=== PATIENT | female | born 1975 | race Caucasian/White ===

== ENCOUNTER 2022-06-06 00:44 | Inpatient (IN) | payer BC, SELFPAY ==
[2022-06-06] VITALS (10 sets, daily range): BP systolic 111–148; BP diastolic 66–90; PULSE 90–135; RESP 14–22; TEMP 37–39.3; O2SAT 93–100; BMI 35.0
--- NOTE | ~2022-06-06 | US_ITS ---
EXAMINATION: US PELVIS CLINICAL INFORMATION: Normal ovaries on CT COMPARISON: CT of abdomen pelvis 06/06/2022 TECHNIQUE: Ultrasound of the pelvis is performed using both transabdominal and transvaginal transducers along with Doppler. Transvaginal imaging is performed due to inadequate visualization transabdominally. FINDINGS: Uterus: The uterus is retroverted and measures 8.5 x 3.2 x 4.8 cm. The double wall endometrial thickness is 0.5 mm. Question of a possible 0.9 x 0.5 x 0.5 cm echogenic focus within the anterior aspect of the endometrium, unclear if this could reflect an underlying polyp. This could be further evaluated with dedicated saline sonohysterogram if warranted. The uterus is smooth in contour and has normal myometrial echogenicity. No visible fibroid. Adnexa: Both ovaries are visualized. There is normal color flow to the adnexa. There is no ovarian torsion. There is no pelvic ascites or fluid collection. Right ovary measures 5.5 x 4.5 x 3.2 cm cm. There is a unilocular 3.5 x 4.7 x 2.8 cm cyst with low-level internal echoes. Dilated tubular structure in the right adnexa may reflect a hydrosalpinx. Left ovary measures 6.4 x 4.6 x 3.8 cm. 2 adjacent cystic lesions are noted within the left ovary one measuring 3.4 x 3.7 x 3.3 cm with low-level internal echoes and one measuring 4.0 x 2.1 x 2.9 cm with some low level internal echoes with possible lacelike reticulation. Per all source collection manager report ovaries were adherent to the uterus which can be a sign of fibrosis. US/US pelvic ovarian doppler IMPRESSION: 1. Right ovarian cystic lesion with low-level internal echoes measuring 4.7 cm morphologically resembling an endometrioma. On the left there are 2 adjacent cystic lesions one with low-level internal echoes measuring 3.7 cm morphologically resembling an endometrioma and an adjacent 4.0 cm cystic lesion with low-level internal echoes and questionable lacelike reticulations which differential considerations could include hemorrhagic cyst or endometrioma. Recommend 6-12 week follow-up ultrasound. 2. Question of a possible 0.9 cm echogenic focus within the anterior aspect of the endometrium, unclear if this could reflect an underlying polyp. This could be further evaluated with dedicated saline sonohysterogram if warranted. 3. Dilated tubular structure in the right adnexa may reflect a hydrosalpinx. 4. Per all source collection manager report ovaries were adherent to the uterus which can be a sign of fibrosis.
--- NOTE | ~2022-06-06 | CT_ITS ---
EXAMINATION: CT ABDOMEN AND PELVIS WITHOUT CONTRAST CLINICAL INFORMATION: Right-sided abdominal pain, leukocytosis, fever. COMPARISON: CT abdomen/pelvis 06/28/2021. TECHNIQUE: Multidetector volumetric imaging was performed from the superior aspect of the liver through the pubic symphysis. Sagittal and coronal reformatted images were obtained on the technologist's workstation. This CT examination was performed using dose optimization techniques as appropriate, variously including the following: *Automated exposure control *Adjustment of mA and/or kV according to patient size (this includes techniques or standardized protocols for targeted exams where dose is matched to indication/reason for exam; i.e. extremities or head) *Use of iterative reconstruction technique DLP: 866 mGy-cm FINDINGS: LUNG BASES: The visualized lung bases are unremarkable. LIVER, GALLBLADDER, AND BILIARY TREE: Hepatomegaly measuring 24.4 cm craniocaudally. The liver is otherwise normal in shape and attenuation without discrete focal abnormality in this limited noncontrast examination. Normal appearance of the gallbladder. No biliary ductal dilatation. PANCREAS: Unremarkable. SPLEEN: Unremarkable. ADRENAL GLANDS: Unremarkable. KIDNEYS AND URETERS: The kidneys are normal in size, shape, and attenuation. No hydronephrosis, hydroureter, or calculi seen. No perinephric stranding. BLADDER: Unremarkable. GASTROINTESTINAL TRACT: The stomach is nondilated. There is equivocal wall thickening within a loop of the small bowel in the left upper abdomen (3:44). There are several fluid filled mildly prominent loops of small bowel throughout the abdomen. The appendix is not definitely identified, however there are no inflammatory changes in the right lower quadrant or cecal base to suspect acute appendicitis. Mild colonic diverticulosis. No pericolic inflammatory changes. ABDOMINAL WALL: Multiple surgical tacks/clips in the inguinal regions and lower abdominal wall, likely from prior hernia repair. No evidence of hernia recurrence. LYMPH NODES: Mild haziness of the mesenteric fat with a few prominent subcentimeter in short axis mesenteric lymph nodes. Prominent iliac lymph nodes, for instance measuring 0.8 cm in short axis on the left side (3:71) are increased in size in comparison to 06/28/2021. VASCULAR: Limited noncontrast examination. The abdominal aorta is of normal caliber. PELVIC VISCERA: The ovaries are abnormally enlarged, increased when compared to 06/28/2021, demonstrating multiple low density masses. The ovaries are somewhat medially positioned, suggesting the possibility of adhesions and fibrosis. Trace amount of free fluid. OSSEOUS STRUCTURES: No acute or aggressive appearing osseous abnormalities. CT/CT abdomen pelvis wo IV con IMPRESSION: The ovaries are abnormally in appearance, enlarged with multiple low density masses and somewhat medially positioned, suggesting the possibility of endometriosis and deep pelvic endometriosis. Recommend further evaluation with a pelvic MRI with and without intravenous contrast. Equivocal wall thickening of a loop of small bowel in the left upper abdomen with several fluid filled prominent loop of small bowel throughout the abdomen which could be related with gastroenteritis in the appropriate clinical context. Mild diverticulosis but no evidence of acute diverticulitis. Increased size of iliac lymph nodes when compared to 06/28/2021, nonspecific. Hepatomegaly.
--- NOTE | ~2022-06-06 | CT_ITS ---
EXAMINATION: CT ABDOMEN AND PELVIS WITH CONTRAST CLINICAL INFORMATION: Abdominal pain with complex ovarian cyst COMPARISON: Noncontrast CT scan of the abdomen and pelvis performed today, only 8 hours ago TECHNIQUE: Multidetector volumetric images were obtained from the superior aspect of the liver through the pubic symphysis following administration 85 mL of Omnipaque 350 intravenous contrast. Sagittal and coronal reformatted images were obtained on the technologist's workstation. Oral contrast: No This CT examination was performed using dose optimization techniques as appropriate, variously including the following: *Automated exposure control *Adjustment of mA and/or kV according to patient size (this includes techniques or standardized protocols for targeted exams where dose is matched to indication/reason for exam; i.e. extremities or head) *Use of iterative reconstruction technique DLP: 867 mGy-cm FINDINGS: Compared to the prior study from 8 hours ago there is been no interval change LUNG BASES: The visualized lung bases are unremarkable. LIVER, GALLBLADDER, AND BILIARY TREE: Hepatomegaly again noted and unchanged with the liver measuring 24 cm in cephalocaudad dimension.. The liver is otherwise normal in shape and attenuation without discrete focal abnormality in this limited noncontrast examination. Normal appearance of the gallbladder with the exception of an equivocal punctate area of low density in the gallbladder which could represent noncalcified gallstones (2:29). If gallbladder disease is a consideration, ultrasound is recommended. No biliary ductal dilatation. PANCREAS: Unremarkable. SPLEEN: Unremarkable. ADRENAL GLANDS: Unremarkable. KIDNEYS AND URETERS: The kidneys are normal in size, shape, and attenuation. No hydronephrosis, hydroureter, or calculi seen. No perinephric stranding. BLADDER: Unremarkable. GASTROINTESTINAL TRACT: The stomach is nondilated. There is a slight increase in diameter of some fluid-filled small bowel loops of bowel in the left upper quadrant but no evidence of bowel obstruction. The appendix is not definitely identified, however there are no inflammatory changes in the right lower quadrant or cecal base to suspect acute appendicitis. Mild colonic diverticulosis. No pericolic inflammatory changes. ABDOMINAL WALL: Multiple surgical tacks/clips again seen in the inguinal regions and lower abdominal wall from prior hernia repair. No evidence of hernia recurrence. LYMPH NODES: Some shotty para-aortic retroperitoneal lymph nodes without adenopathy.) For example 2:27) Again seen are some minimally prominent iliac lymph nodes as seen on exam earlier today. VASCULAR: Unremarkable PELVIC VISCERA: Again seen are enlarged ovaries, increased when compared to 06/28/2021, demonstrating multiple low density masses. There are medially placed and appear to almost be contiguous with one another. OSSEOUS STRUCTURES: No acute or aggressive appearing osseous abnormalities. CT/CT abdomen pelvis w IV con IMPRESSION: Again seen are enlarged medially deviated ovaries with multiple low density masses . Differential diagnosis continues to include the possibility of endometriosis and a pelvic MRI with and without intravenous contrast would be useful for further evaluation. Minimally prominent fluid-filled loops of small bowel left upper quadrant of questionable significance. No definite bowel obstruction. Mild diverticulosis but no evidence of acute diverticulitis. Other incidental findings described above including some nonspecific retroperitoneal and iliac lymph nodes as well as marked hepatomegaly and question of gallstones.
--- NOTE | ~2022-06-06 | MR_ITS ---
EXAMINATION: MRI PELVIS WITH AND WITHOUT CONTRAST CLINICAL INFORMATION: Reason for Exam ?ovarian adhesions ?endometriosis COMPARISON: Pelvic ultrasound 06/06/2022 TECHNIQUE: Multiple routine MRI sequences through the pelvis were obtained before and after the uneventful administration of 10 mL of Gadavist gadolinium-based IV contrast. FINDINGS: UTERUS: Retroverted uterus has a normal configuration and measures 7.9 x 4.5 x 4.0 cm ([id number] x anterior-posterior x transverse). Endometrium is uniform and measures 0.4 cm in thickness. Junctional zone is normal in signal and thickness. No focal uterine mass seen. CERVIX: Nabothian cyst in the cervix. VAGINA: Unremarkable. OVARIES: The right ovary measures 5.0 x 4.3 cm. The right ovary is remarkable for a 3.5 x 3.0 cm cystic lesion with layering T2 hypointense signal suggesting T2 hypointense shading sign. No intrinsic T1 hyperintense signal. Mild right hydrosalpinx. No enhancing solid components. The left ovary measures 6.1 x 4.7 cm. Left ovary is remarkable for 2 cystic lesions one more anteriorly which is multiloculated measuring 4.2 x 3.1 cm with layering T2 signal compatible with a T2 shading sign. More posteriorly is an additional cystic lesion measuring 4.2 x 3.2 cm heterogeneous T2 signal. Mild left hydrosalpinx. No enhancing solid components. No intrinsic T1 hyperintense signal. KIDNEYS: Two normally positioned kidneys are seen. No hydronephrosis. BLADDER: Unremarkable. PELVIC FREE FLUID: Presacral edema and trace free fluid. LYMPH NODES: No pathologically enlarged lymph nodes. OSSEOUS STRUCTURES: No acute or suspicious osseous abnormalities. MR/MR pelvis wo/w con IMPRESSION: There are bilateral cystic ovarian lesions. A 3.5 cm unilocular cystic right ovarian lesion and a 4.2 cm multiloculated cystic left adnexal lesion both demonstrate layering T2 hypointense signal suggesting shading sign which could be seen in the setting of endometriomas although the absence of any intrinsic T1 hyperintense signal is atypical. There is an additional 4.2 cm cystic left ovarian lesion with heterogeneous T2 signal, favored to reflect a hemorrhagic cyst however as with the above described cystic lesions there is an absence of intrinsic T1 hyperintense signal which is also atypical. Given atypical features, mucinous cystadenoma would be the other differential consideration. Categorically, these both reflect O-RADS 3 lesions by MR, approximately 5% chance of malignancy. Recommend gynecologic referral and management and short interval follow-up contrast enhanced MR pelvis in 3-6 months.
--- NOTE | ~2022-06-06 | US_ITS ---
EXAMINATION: US PELVIS CLINICAL INFORMATION: Normal ovaries on CT COMPARISON: CT of abdomen pelvis 06/06/2022 TECHNIQUE: Ultrasound of the pelvis is performed using both transabdominal and transvaginal transducers along with Doppler. Transvaginal imaging is performed due to inadequate visualization transabdominally. FINDINGS: Uterus: The uterus is retroverted and measures 8.5 x 3.2 x 4.8 cm. The double wall endometrial thickness is 0.5 mm. Question of a possible 0.9 x 0.5 x 0.5 cm echogenic focus within the anterior aspect of the endometrium, unclear if this could reflect an underlying polyp. This could be further evaluated with dedicated saline sonohysterogram if warranted. The uterus is smooth in contour and has normal myometrial echogenicity. No visible fibroid. Adnexa: Both ovaries are visualized. There is normal color flow to the adnexa. There is no ovarian torsion. There is no pelvic ascites or fluid collection. Right ovary measures 5.5 x 4.5 x 3.2 cm cm. There is a unilocular 3.5 x 4.7 x 2.8 cm cyst with low-level internal echoes. Dilated tubular structure in the right adnexa may reflect a hydrosalpinx. Left ovary measures 6.4 x 4.6 x 3.8 cm. 2 adjacent cystic lesions are noted within the left ovary one measuring 3.4 x 3.7 x 3.3 cm with low-level internal echoes and one measuring 4.0 x 2.1 x 2.9 cm with some low level internal echoes with possible lacelike reticulation. Per machinist wood report ovaries were adherent to the uterus which can be a sign of fibrosis. US/US pelvic and transvaginal IMPRESSION: 1. Right ovarian cystic lesion with low-level internal echoes measuring 4.7 cm morphologically resembling an endometrioma. On the left there are 2 adjacent cystic lesions one with low-level internal echoes measuring 3.7 cm morphologically resembling an endometrioma and an adjacent 4.0 cm cystic lesion with low-level internal echoes and questionable lacelike reticulations which differential considerations could include hemorrhagic cyst or endometrioma. Recommend 6-12 week follow-up ultrasound. 2. Question of a possible 0.9 cm echogenic focus within the anterior aspect of the endometrium, unclear if this could reflect an underlying polyp. This could be further evaluated with dedicated saline sonohysterogram if warranted. 3. Dilated tubular structure in the right adnexa may reflect a hydrosalpinx. 4. Per machinist wood report ovaries were adherent to the uterus which can be a sign of fibrosis.
[2022-06-06 01:12] LABS: MANUAL DIFF FLAG NO
[2022-06-06 01:13] LABS: Basophils Absolute Auto 0.1 X10*3/uL (0.0-0.2); Basophils Percent Auto 0.3 % (0-2); Hematocrit 39.1 % (37.0-47.0); Hemoglobin 13.8 g/dl (12.0-16.0); Imm Gran Abs Auto 0.09 X10*3/uL (0.00-0.03); Imm Gran Pct Auto 0.5 % (0.0-0.4); Lymphocytes Absolute Auto 1.3 X10*3/uL (1.2-4.9); Lymphocytes Percent Auto 6.7 % (20-40); Mean Corpuscular HGB Conc 35.3 g/dl (31.0-35.0); Mean Corpuscular Hemoglobin 30.8 pg (27.0-33.0); Mean Corpuscular Volume 87.3 fL (80.0-98.0); Mean Platelet Volume 9.3 fL (9.4-12.3); Monocytes Absolute Auto 1.4 X10*3/uL (0.1-1.2); Neutrophils Percent Auto 85.5 % (45-73); Platelet Count 353 X10*3/uL (160-400); Red Blood Count 4.48 X10*6/uL (4.20-5.50); Red Cell Distribution Width 11.5 % (11.0-16.0); White Blood Count 19.8 X10*3/uL (4.8-10.8)
[2022-06-06 01:24] LABS: Lactic Acid 1.2 mmol/L (0.5-2.0)
[2022-06-06] MEDS: ondansetron HCL 4 MG/2 ML VIAL IVPUSH ×4 (01:24→23:14)
[2022-06-06] MEDS: 0.9 % Sodium Chloride 1,000 ML 999 ML IV (01:27)
[2022-06-06 01:31] LABS: Lipase 11 U/L (8-78)
[2022-06-06 01:33] LABS: Alanine Aminotransferase 29 U/L (0-31); Albumin Level 4.1 g/dL (3.5-5.0); Alkaline Phosphatase 104 U/L (39-117); Anion Gap 16 (12-20); Aspartate Amino Transferase 31 U/L (5-31); Bilirubin Direct 0.4 mg/dL (0.0-0.5); Bilirubin Total 1.1 mg/dL (0.0-1.0); Blood Urea Nitrogen 8 mg/dL (9-16); Carbon Dioxide 20 mmol/L (22-29); Chloride 103 mmol/L (96-108); Creatinine Clr Calc Pharmacy 106.2; Estimated Glomerular Filt Rate > 60; Glucose Random 156 mg/dL (60-115); Potassium 4.2 mmol/L (3.3-5.1); Sodium 135 mmol/L (135-145); Total Protein 7.4 g/dL (6.5-8.0)
[2022-06-06] MEDS: Piperacillin Sodium/Tazobactam 3.375 GM in 0.9 % Sodium Chloride 50 ML IV (01:41)
[2022-06-06] MEDS: 0.9 % Sodium Chloride 1,779 ML 1779 ML IV (01:41)
[2022-06-06] MEDS: Acetaminophen 325 MG TABLET 650 MG PO ×2 (01:41→23:15)
--- NOTE | 2022-06-06 01:50 | ED_ITS ---
HPI - Abdominal Pain General Chief Complaint: Abdominal Pain Stated Complaint: abd pain Time Seen by Provider: 06/06/22 01:17 Source: patient and family (Spouse) Mode of arrival: ambulatory Limitations: no limitations History of Present Illness HPI narrative: 46-year-old female presented with right-sided abdominal pain started 3 days ago, patient started to have fever and chills. Abdominal pain is intermittent l ocalized to the right side of the abdomen, no dysuria, no frequency urination, no blood in the urine, normal bowel movement with no diarrhea or blood. 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 Related Data Allergies Allergy/AdvReac Type Severity Reaction Status Date / Time No Known Allergies Allergy Verified 06/06/22 00:54 Review of Systems Review of Systems All other systems are reviewed and are negative Constitutional: Reports as per HPI and Reports no additional constitutional complaints Eyes: Reports as per HPI and Reports no additional eye complaints Reports system reviewed and no additional complaints, except as documented Cardiovascular: Reports as per HPI and Reports no additional cardiovascular complaints Respiratory: Reports as per HPI and Reports no additional respiratory complaints Gastrointestinal: Reports as per HPI and Reports no additional gastrointestinal complaints Genitourinary: Reports no additional female genitourinary complaints Musculoskeletal: Reports no additional musculoskeletal complaints Skin/Breast: Reports system reviewed and no additional complaints, except as docu Psychiatric: Reports no additional psychiatric complaints Endocrine: Reports no additional endocrine complaints Hematologic/Lymphatic: Reports no additional hematologic/lymphatic complaints Allergic/Immunologic: Reports no additional allergic/immunologic complaints Reports system reviewed and no additional complaints, except as documented and Reports Abnormal speech present [facility] Past Medical History Medical History (Updated 06/06/22 @ 06:01 by James Oliver MD) Endometriosis Surgical History (Updated 06/06/22 @ 05:15 by Prabha Drew MD) H/O hernia repair Social History Social History Advance Directives: No Physical Exam ED Vital Signs: Vital Signs - 24 hr 06/06/22 00:47 06/06/22 02:32 06/06/22 03:32 Temperature 102.7 F H 99.6 F 98.8 F Pulse Rate 135 H 96 94 Respiratory Rate 22 H 16 14 Blood Pressure 148/90 H 120/70 117/69 Pulse Oximetry 99 97 97 Oxygen Delivery Method Room Air Room Air Room Air 06/06/22 04:00 06/06/22 04:29 Temperature 98.6 F 98.6 F Pulse Rate 90 103 H Respiratory Rate 18 16 Blood Pressure 119/67 111/71 Pulse Oximetry 96 97 Oxygen Delivery Method Room Air Room Air BMI result Body Mass Index 35.0 Vital signs have been reviewed as appeared to be correct. Blood pressure normal. Tachycardia. Respiration rate normal. Febrile. Oxygen saturation normal. Appearance: Alert. Oriented X3. No acute distress. Head: Normal external exam. Normocephalic. Atraumatic. No Dang signs noted. No raccoon eyes noted Eyes: PERRLA. EOMI. Conjunctiva and sclera normal. Eyelids normal. ENT: TM's Normal. Pharynx normal. Uvula midline. Moist mucous membranes. No trismus noted. No drooling noted. No muffled voice noted. Neck: Normal inspection. Neck supple. FROM. No adenopathy. Thyroid Normal. No meningeal signs. No neck mass noted. CVS: Normal heart rate and rhythm. Heart sound normal. No murmurs noted. Pulses normal throughout. Respiratory: No respiratory distress. Painless inspiration. Breath sounds normal. No wheezes/rales/rhonchi noted. Chest nontender. No accessory muscle usage noted or decreased air movement noted. Abdomen: Soft and obese, mild tenderness in the right mid abdomen, no guarding, no rebound. Bowel sounds normal in all 4 quadrants. No distention noted. No organomegaly noted. No visible injury noted. Back: Mild right CVA tenderness. Full range of motion noted. Skin: Skin warm and dry. Normal skin color. Normal skin turgor. No rashes/lesions/lacerations noted. Extremities: No lower extremity edema. Extremities exhibit normal range of motion. Extremities nontender. Neuro: Oriented X 3. Cranial nerve exam: II-XII are grossly intact No motor deficit. No sensory deficit. Reflexes normal. Course Course Course Narrative: 46-year-old female came in for evaluation of right-sided abdominal pain with f ever and tachycardia with leukocytosis, patient has mild UTI which is not believed to be the reason of this high fever and leukocytosis, however there is abnormal looking ovaries on CT of the abdomen and pelvis which will [facility] consultation in the a.m.. Patient already received Zosyn and Rocephin for broad coverage antibiotic and received 30 cc/kg IV fluid (1779 mL). Will admit the patient discussed with Dr. Drew who accepted the patient to the hospitalist service. Medications Administered Generic Name Dose Route Start Last Admin Trade Name Freq PRN Reason Stop Dose Admin Enoxaparin Sodium 40 mg 06/06/22 05:15 06/06/22 05:44 Enoxaparin Sodium 40 Mg/0.4 Ml Syringe SUBCUT 40 mg Q24H MELINDA Administration Morphine Sulfate 2 mg 06/06/22 05:04 06/06/22 05:50 Morphine Sulfate 4 Mg/Ml Cartridge IVPUSH 2 mg Q4H PRN Administration Pain, Severe (Pain Scale 7-10) Protocol Discontinued Medications Generic Name Dose Route Start Last Admin Trade Name Freq PRN Reason Stop Dose Admin Acetaminophen 650 mg 06/06/22 01:34 06/06/22 01:41 Acetaminophen 325 Mg Tablet PO 06/06/22 01:35 650 mg ONCE ONE Administration Sodium Chloride 1,000 mls @ 999 mls/hr 06/06/22 01:30 06/06/22 01:40 Ns IV 06/06/22 02:30 0 mls/hr .Q1H1M MELINDA Infusion Sodium Chloride 1,779 mls @ 1,779 mls/hr 06/06/22 01:34 06/06/22 03:34 Ns IV 06/06/22 02:33 Infused .Q1H STA Infusion Piperacillin Sod/Tazobactam 50 mls @ 100 mls/hr 06/06/22 01:34 06/06/22 02:11 Sod 3.375 gm/ Sodium Chloride IV 06/06/22 02:03 Infused ONCE ONE Infusion Ceftriaxone Sodium 1 gm/ 50 mls @ 100 mls/hr 06/06/22 03:58 06/06/22 04:39 Sodium Chloride IV 06/06/22 04:27 Infused ONCE ONE Infusion Piperacillin Sod/Tazobactam 100 mls @ 200 mls/hr 06/06/22 05:15 06/06/22 05:30 Sod 4.5 gm/ Sodium Chloride IV Not Given Q6H MELINDA Ondansetron HCl 4 mg 06/06/22 01:20 06/06/22 01:24 Ondansetron Hcl 4 Mg/2 Ml Vial IVPUSH 06/06/22 01:21 4 mg ONCE ONE Administration MDM - Abdominal Pain Medical Records Attestation: I reviewed the patient's medical records. Lab Data Attestation: I reviewed the patient's lab results. Result diagrams: 06/06/22 01:04 06/06/22 01:04 Labs: Lab Results 06/06/22 06/06/22 06/06/22 Range/Units 01:04 01:04 01:04 WBC 19.8 H (4.8-10.8) X10*3/uL RBC 4.48 (4.20-5.50) X10*6/uL Hgb 13.8 (12.0-16.0) g/dl Hct 39.1 (37.0-47.0) % MCV 87.3 (80.0-98.0) fL MCH 30.8 (27.0-33.0) pg MCHC 35.3 H (31.0-35.0) g/dl RDW 11.5 (11.0-16.0) % Plt Count 353 (160-400) X10*3/uL MPV 9.3 L (9.4-12.3) fL Immature Gran % (Auto) 0.5 H (0.0-0.4) % Neut % (Auto) 85.5 H (45-73) % Lymph % (Auto) 6.7 L (20-40) % [place] % (Auto) 7.0 (2-11) % Eos % (Auto) 0.0 (0-4) % Baso % (Auto) 0.3 (0-2) % Lymph # (Auto) 1.3 (1.2-4.9) X10*3/uL [place] # (Auto) 1.4 H (0.1-1.2) X10*3/uL Eos # (Auto) 0.0 (0.0-0.4) X10*3/uL Baso # (Auto) 0.1 (0.0-0.2) X10*3/uL Abs Immat Gran (auto) 0.09 H (0.00-0.03) X10*3/uL Absolute Neuts (auto) 17.0 H (2.0-8.3) x10*3/uL Absolute Nucleated RBC 0.000 (0.0-0.012) X10*3/uL Nucleated RBC % (auto) 0.0 (0.0-0.2) /100WBC Sodium 135 (135-145) mmol/L Potassium 4.2 (3.3-5.1) mmol/L Chloride 103 (96-108) mmol/L Carbon Dioxide 20 L (22-29) mmol/L Anion Gap 16 (12-20) BUN 8 L (9-16) mg/dL Creatinine 0.80 (0.5-1.4) mg/dL Estim Creat Clear Calc 106.2 Estimated GFR > 60 Random Glucose 156 H (60-115) mg/dL Lactic Acid 1.2 (0.5-2.0) mmol/L Calcium 10.0 (8.4-10.2) mg/dL Total Bilirubin 1.1 H (0.0-1.0) mg/dL Direct Bilirubin 0.4 (0.0-0.5) mg/dL AST 31 (5-31) U/L ALT 29 (0-31) U/L Alkaline Phosphatase 104 (39-117) U/L Total Protein 7.4 (6.5-8.0) g/dL Albumin 4.1 (3.5-5.0) g/dL Lipase 11 (8-78) U/L Urine Color Urine Appearance Urine pH (5.0-9.0) Ur Specific [place] (1.005-1.025) Urine Protein (Neg-Trace) mg/dL Urine Glucose (UA) (Negative) mg/dL Urine Ketones (Negative) mg/dL Urine Blood (Negative) Urine Nitrite (Negative) Ur Leukocyte Esterase (Negative) Urine RBC (0-2) /HPF Urine WBC (0-5) /HPF Ur Squamous Epith Cells (0-2) /HPF Urine Bacteria (None Seen) Hyaline Casts (0-2) /LPF Influenza Type A (PCR) (Negative) Influenza Type B (PCR) (Negative) RSV RNA Qual (PCR) (Negative) SARS-CoV-2 RNA (RT-PCR) (Negative) 06/06/22 06/06/22 Range/Units 01:46 02:57 WBC (4.8-10.8) X10*3/uL RBC (4.20-5.50) X10*6/uL Hgb (12.0-16.0) g/dl Hct (37.0-47.0) % MCV (80.0-98.0) fL MCH (27.0-33.0) pg MCHC (31.0-35.0) g/dl RDW (11.0-16.0) % Plt Count (160-400) X10*3/uL MPV (9.4-12.3) fL Immature Gran % (Auto) (0.0-0.4) % Neut % (Auto) (45-73) % Lymph % (Auto) (20-40) % [place] % (Auto) (2-11) % Eos % (Auto) (0-4) % Baso % (Auto) (0-2) % Lymph # (Auto) (1.2-4.9) X10*3/uL [place] # (Auto) (0.1-1.2) X10*3/uL Eos # (Auto) (0.0-0.4) X10*3/uL Baso # (Auto) (0.0-0.2) X10*3/uL Abs Immat Gran (auto) (0.00-0.03) X10*3/uL Absolute Neuts (auto) (2.0-8.3) x10*3/uL Absolute Nucleated RBC (0.0-0.012) X10*3/uL Nucleated RBC % (auto) (0.0-0.2) /100WBC Sodium (135-145) mmol/L Potassium (3.3-5.1) mmol/L Chloride (96-108) mmol/L Carbon Dioxide (22-29) mmol/L Anion Gap (12-20) BUN (9-16) mg/dL Creatinine (0.5-1.4) mg/dL Estim Creat Clear Calc Estimated GFR Random Glucose (60-115) mg/dL Lactic Acid (0.5-2.0) mmol/L Calcium (8.4-10.2) mg/dL Total Bilirubin (0.0-1.0) mg/dL Direct Bilirubin (0.0-0.5) mg/dL AST (5-31) U/L ALT (0-31) U/L Alkaline Phosphatase (39-117) U/L Total Protein (6.5-8.0) g/dL Albumin (3.5-5.0) g/dL Lipase (8-78) U/L Urine Color Yellow Urine Appearance Clear Urine pH 8.5 (5.0-9.0) Ur Specific [place] 1.015 (1.005-1.025) Urine Protein Trace (Neg-Trace) mg/dL Urine Glucose (UA) Negative (Negative) mg/dL Urine Ketones Trace (Negative) mg/dL Urine Blood Negative (Negative) Urine Nitrite Negative (Negative) Ur Leukocyte Esterase Small (1+) H (Negative) Urine RBC 0-2 (0-2) /HPF Urine WBC 6-10 H (0-5) /HPF Ur Squamous Epith Cells 6-10 (0-2) /HPF Urine Bacteria Trace (None Seen) Hyaline Casts 0-2 (0-2) /LPF Influenza Type A (PCR) NEGATIVE (Negative) Influenza Type B (PCR) NEGATIVE (Negative) RSV RNA Qual (PCR) NEGATIVE (Negative) SARS-CoV-2 RNA (RT-PCR) NEGATIVE (Negative) Imaging Data CT scan - abdomen: Attestation: I personally reviewed and interpreted this imaging study as follows: Radiologist's impression: The ovaries are abnormally in appearance, enlarged with multiple low density masses and somewhat medially positioned, suggesting the possibility of endometriosis and deep pelvic endometriosis. Recommend further evaluation with a pelvic MRI with and without intravenous contrast. ? Equivocal wall thickening of a loop of small bowel in the left upper abdomen with several fluid filled prominent loop of small bowel throughout the abdomen which could be related with gastroenteritis in the appropriate clinical context. ? Discharge Plan Discharge Clinical Impression: Abdominal pain, Intra-abdominal infection Patient Disposition: Admitted As Inpatient
--- NOTE | 2022-06-06 01:51 | ECG_ITS ---
Test Reason : SEPSIS Blood Pressure : / mmHG Vent. Rate : 102 BPM Atrial Rate : 102 BPM P-R Int : 152 ms QRS Dur : 076 ms QT Int : 324 ms P-R-T Axes : 065 -02 035 degrees QTc Int : 422 ms Sinus tachycardia RSR' or QR pattern in V1 suggests right ventricular conduction delay Possible Left atrial enlargement Abnormal ECG No previous ECGs available Referred By: James Oliver Electronically Signed By:HERMILA SAWYER MD
[2022-06-06 02:28] LABS: Influenza A PCR NEGATIVE (Negative); Influenza B PCR NEGATIVE (Negative); Resp Syncy Virus RNA Qual PCR NEGATIVE (Negative); SARS COV2 PCR INHOUSE NEGATIVE (Negative)
[2022-06-06 03:02] LABS: Appearance Urine Clear; Color Urine Yellow; Glucose Urine UA Negative (Negative); Leukocyte Esterase Urine Small (1+) (Negative); Nitrite Urine Negative (Negative); PH 8.5 (5.0-9.0); Specific Gravity - Urine 1.015 (1.005-1.025); UMIC TRIGGER UACC YES; Urine Blood Negative (Negative); Urine Ketones Trace mg/dL (Negative); Urine Protein Trace mg/dL (Neg-Trace)
[2022-06-06 03:36] LABS: Bacteria Urine Trace (None Seen); Hyaline Casts Urine 0-2 /LPF (0-2); RBC Urine 0-2 /HPF (0-2); UACC Culture Trigger YES
[2022-06-06] MEDS: cefTRIAXone sodium 1 GM in 0.9 % Sodium Chloride 50 ML IV (04:09)
--- NOTE | 2022-06-06 05:08 | P.HPHOSP_ITS ---
History of Present Illness Date of Service: 06/06/22 Chief Complaint: Abdominal Pain This is a 46-year-old female with no pertinent past medical history and not on prescription medications who presents to the emergency department for evaluation of abdominal pain. Patient states she started having right-sided abdominal pain on Friday. It was located in the right lower quadrant, intermittent, sharp . No relation of the pain to food. Subsequently patient developed fever with nausea and nonbloody emesis. No diarrhea. Patient denies burning micturition, hematuria, increased frequency or hesitancy. No similar complaints in the past. Does have history of endometriosis and had a hysterogram recently about 2 weeks ago. No symptoms of gastroesophageal reflux disease. In the emergency department, patient was found to be febrile, tachycardic and with leukocytosis. Review of Systems Constitutional: Constitutional: Reports chills and Reports fever(s) Cardiovascular: Cardiovascular: Reports no additional cardiovascular complaints Respiratory: Respiratory: Reports no additional respiratory complaints Gastrointestinal: Gastrointestinal: Reports abdominal pain, Reports nausea and Reports vomiting [facility] Medical History (Updated 06/06/22 @ 05:17 by Prabha Drew MD) Endometriosis Functional capacity: independent ambulation Surgical History (Updated 06/06/22 @ 05:15 by Prabha Drew MD) H/O hernia repair Social History Advance Directives: No Meds Allergies Allergy/AdvReac Type Severity Reaction Status Date / Time No Known Allergies Allergy Verified 06/06/22 00:54 Active Medications: Current Medications Acetaminophen (Acetaminophen 325 Mg Tablet) 650 mg PO Q6H PRN PRN Reason: Pain, Mild (Pain Scale 1-3) Enoxaparin Sodium (Enoxaparin Sodium 40 Mg/0.4 Ml Syringe) 40 mg SUBCUT Q24H MELINDA Piperacillin Sod/Tazobactam (Sod 4.5 gm/ Sodium Chloride) 100 mls @ 200 mls/hr IV Q6H MELINDA Melatonin (Melatonin 3 Mg Tablet) 6 mg PO BEDTIME PRN PRN Reason: Insomnia Morphine Sulfate (Morphine Sulfate 4 Mg/Ml Cartridge) 2 mg IVPUSH Q4H PRN; Protocol PRN Reason: Pain, Severe (Pain Scale 7-10) Ondansetron HCl (Ondansetron Hcl 4 Mg/2 Ml Vial) 4 mg IVPUSH Q8H PRN PRN Reason: Nausea and Vomiting Sodium Chloride (0.9 % Sodium Chloride Flush 3 Ml Syringe) 3 ml IVFLUSH QSHIFT MELINDA Physical Exam Vital Signs and Narrative: Vital Signs: Last Vital Signs Temp 98.6 F 06/06/22 04:29 Pulse 103 H 06/06/22 04:29 Resp 16 06/06/22 04:29 BP 111/71 06/06/22 04:29 Pulse Ox 97 06/06/22 04:29 O2 Del Method 06/06/22 04:29 BMI result Body Mass Index 35.0 Middle-aged female lying in bed in no distress Neck supple, no JVD Tachycardic with regular rhythm, S1-S2 heard Regular breath sounds bilaterally, no wheezing or crackles appreciated Abdomen soft, no right sided tenderness, no guarding, no rigidity Patient is awake, alert and oriented to self, place, time and person ; no focal motor deficit Psych: Normal mood No pedal edema Results Labs CBC and Chem 7: 06/06/22 01:04 06/06/22 01:04 Labs: Laboratory Results - last 24 hr 06/06/22 06/06/22 06/06/22 01:04 01:04 01:04 MCV 87.3 MCH 30.8 MCHC 35.3 H RDW 11.5 Plt Count 353 MPV 9.3 L Immature Gran % (Auto) 0.5 H Neut % (Auto) 85.5 H Lymph % (Auto) 6.7 L [place] % (Auto) 7.0 Eos % (Auto) 0.0 Baso % (Auto) 0.3 Lymph # (Auto) 1.3 [place] # (Auto) 1.4 H Eos # (Auto) 0.0 Baso # (Auto) 0.1 Abs Immat Gran (auto) 0.09 H Absolute Neuts (auto) 17.0 H Absolute Nucleated RBC 0.000 Nucleated RBC % (auto) 0.0 Anion Gap 16 Estim Creat Clear Calc 106.2 Estimated GFR > 60 Random Glucose 156 H Lactic Acid 1.2 Calcium 10.0 Total Bilirubin 1.1 H Direct Bilirubin 0.4 AST 31 ALT 29 Alkaline Phosphatase 104 Total Protein 7.4 Albumin 4.1 Lipase 11 Urine Color Urine Appearance Urine pH Ur Specific [place] Urine Protein Urine Glucose (UA) Urine Ketones Urine Blood Urine Nitrite Ur Leukocyte Esterase Urine RBC Urine WBC Ur Squamous Epith Cells Urine Bacteria Hyaline Casts Influenza Type A (PCR) Influenza Type B (PCR) RSV RNA Qual (PCR) SARS-CoV-2 RNA (RT-PCR) 06/06/22 06/06/22 01:46 02:57 MCV MCH MCHC RDW Plt Count MPV Immature Gran % (Auto) Neut % (Auto) Lymph % (Auto) [place] % (Auto) Eos % (Auto) Baso % (Auto) Lymph # (Auto) [place] # (Auto) Eos # (Auto) Baso # (Auto) Abs Immat Gran (auto) Absolute Neuts (auto) Absolute Nucleated RBC Nucleated RBC % (auto) Anion Gap Estim Creat Clear Calc Estimated GFR Random Glucose Lactic Acid Calcium Total Bilirubin Direct Bilirubin AST ALT Alkaline Phosphatase Total Protein Albumin Lipase Urine Color Yellow Urine Appearance Clear Urine pH 8.5 Ur Specific [place] 1.015 Urine Protein Trace Urine Glucose (UA) Negative Urine Ketones Trace Urine Blood Negative Urine Nitrite Negative Ur Leukocyte Esterase Small (1+) H Urine RBC 0-2 Urine WBC 6-10 H Ur Squamous Epith Cells 6-10 Urine Bacteria Trace Hyaline Casts 0-2 Influenza Type A (PCR) NEGATIVE Influenza Type B (PCR) NEGATIVE RSV RNA Qual (PCR) NEGATIVE SARS-CoV-2 RNA (RT-PCR) NEGATIVE Imaging Radiologist's Impressions: Impressions Abdomen/Pelvis CT 06/06/22 02:24 IMPRESSION: The ovaries are abnormally in appearance, enlarged with multiple low density masses and somewhat medially positioned, suggesting the possibility of endometriosis and deep pelvic endometriosis. Recommend further evaluation with a pelvic MRI with and without intravenous contrast. Equivocal wall thickening of a loop of small bowel in the left upper abdomen with several fluid filled prominent loop of small bowel throughout the abdomen which could be related with gastroenteritis in the appropriate clinical context. Mild diverticulosis but no evidence of acute diverticulitis. Increased size of iliac lymph nodes when compared to 06/28/2021, nonspecific. Hepatomegaly. Assessment and Plan (1) Sepsis: Status: Acute (2) Abdominal pain: Status: Acute Plan This is a 46-year-old female with no pertinent past medical history and not on prescription medications who presents to the emergency department for evaluation of abdominal pain. #. SIRS with acute right sided abdominal pain - patient resuscitated with IV crystalloids in the ER. Lactic acid and blood cultures obtained. Does have ovarian adhesions and trace amount of free fluid on abdominal CT. Will obtain MRI pelvis with and without contrast to further delineate the anatomy. Treat empirically with IV Zosyn. DVT prophylaxis: Lovenox 40 mg daily Regular diet NPO Admit as inpatient and will require two night minimum hospital stay for IV antib iotics. Quality Stroke Does the patient have a stroke diagnosis?: No VTE Prior VTE?: No VTE Risk Level:: Medical - low VTE Device Contraindication: Treatment Not Indicated VTE Drug Contraindication: N/A - Med Ordered
[2022-06-06] MEDS: Enoxaparin Sodium 40 MG/0.4 ML SYRINGE SUBCUT (05:44)
[2022-06-06] MEDS: Morphine Sulfate 4 MG/ML CARTRIDGE 2 MG IVPUSH ×3 (05:50→15:53)
[2022-06-06 06:36] LABS: MANUAL DIFF FLAG NO
[2022-06-06 06:42] LABS: Basophils Percent Auto 0.2 % (0-2); Hematocrit 35.8 % (37.0-47.0); Hemoglobin 12.5 g/dl (12.0-16.0); Imm Gran Abs Auto 0.11 X10*3/uL (0.00-0.03); Imm Gran Pct Auto 0.5 % (0.0-0.4); Lymphocytes Absolute Auto 1.8 X10*3/uL (1.2-4.9); Lymphocytes Percent Auto 9.2 % (20-40); Mean Corpuscular HGB Conc 34.9 g/dl (31.0-35.0); Mean Corpuscular Hemoglobin 31.2 pg (27.0-33.0); Mean Corpuscular Volume 89.3 fL (80.0-98.0); Mean Platelet Volume 9.3 fL (9.4-12.3); Monocytes Absolute Auto 1.4 X10*3/uL (0.1-1.2); Monocytes Percent Auto 7.1 % (2-11); Neutrophils Absolute Auto 16.6 x10*3/uL (2.0-8.3); Platelet Count 316 X10*3/uL (160-400); Red Blood Count 4.01 X10*6/uL (4.20-5.50); Red Cell Distribution Width 11.6 % (11.0-16.0)
[2022-06-06 07:30] LABS: Anion Gap 13 (12-20); Blood Urea Nitrogen 6 mg/dL (9-16); Calcium 8.9 mg/dL (8.4-10.2); Carbon Dioxide 22 mmol/L (22-29); Chloride 108 mmol/L (96-108); Creatinine Clr Calc Pharmacy 116.3; Estimated Glomerular Filt Rate > 60; Glucose Random 119 mg/dL (60-115); Sodium 139 mmol/L (135-145)
[2022-06-06] MEDS: Piperacillin Sodium/Tazobactam 4.5 GM in 0.9 % Sodium Chloride 100 ML IV ×3 (07:33→20:33)
--- NOTE | 2022-06-06 09:07 | PHA.MEDREC ---
Pharmacy Consult ? Medication Reconciliation Pharmacy has completed the medication reconciliation. Patient reports only taking multivitamins. Karen Loo, KeshiaD
--- NOTE | 2022-06-06 09:19 | PC.NURSE ---
MRI screening form completed, pt reports 2/10 abdominal pain. meds given as documented, pt resting quietly, no apparent distress. vss.
[2022-06-06 09:36] LABS: UPreg QC Valid YES; Urine Pregnancy NEGATIVE (NEGATIVE)
[2022-06-06] MEDS: iohexoL 350 MG/ML 100 ML INFUS..BTL 85 ML IV (10:34)
--- NOTE | 2022-06-06 11:11 | MHC.CM.PN ---
Attempted to meet with patient in regards to discharge planning. Patient currently at a test. Patient's , Juan Antonio is at bedside. CM assessment completed with Juan Antonio's help. Patient lives with Juan Antonio, ambulates independently and had no services prior to coming to the hospital. No services anticipated to be needed because patient is not homebound. PCP verified. Copy of HCP verified to be on file. Patient received 3 Pfizer vaccines. Juan Antonio will transport patient home when medically stable. Continue to monitor for d/c needs.
--- NOTE | 2022-06-06 11:28 | P.EN_ITS ---
Event Note Date of Service: 06/06/22 Event Note: Patient seen and examined with signficant other at bedside: admitted this morning with lower abdominal pain, leukocytosis, no fever CT of abdomen with and without contrast Again seen are enlarged medially deviated ovaries with multiple low density masses . Differential diagnosis continues to include the possibility of endometriosis and? a pelvic MRI with and without intravenous contrast would be useful for further evaluation. ? Minimally prominent fluid-filled loops of small bowel left upper quadrant of questionable significance. No definite bowel obstruction. ? Mild diverticulosis but no evidence of acute diverticulitis. ? Other incidental findings described above including some nonspecific retroperitoneal and iliac lymph nodes as well as marked hepatomegaly.. At this point unclear what she has. Exam: no rigidicity, no rebound, no guarding , very soft and positive BS, mild tendernes. Repeat CBC , lactic acid, [employer] consult and MRI. Empiric Zosyn, cultures pending. Morphine for pain, IVF
[2022-06-06 11:37] LABS: Hematocrit 37.1 % (37.0-47.0); Hemoglobin 12.9 g/dl (12.0-16.0); Mean Corpuscular HGB Conc 34.8 g/dl (31.0-35.0); Mean Corpuscular Hemoglobin 31.3 pg (27.0-33.0); Mean Platelet Volume 9.1 fL (9.4-12.3); Platelet Count 328 X10*3/uL (160-400); Red Blood Count 4.12 X10*6/uL (4.20-5.50); Red Cell Distribution Width 11.8 % (11.0-16.0)
[2022-06-06 11:53] LABS: Lactic Acid 0.6 mmol/L (0.5-2.0)
[2022-06-06] MEDS: Dextrose 5 % 1,000 ML 125 ML IVCONT ×2 (12:37→20:56)
--- NOTE | 2022-06-06 13:12 | P.CONOB_ITS ---
SENIOR DATA DEVELOPER - CN: HPI Data of Consult Consult date: 06/06/22 Requesting Physician: Jeff Alcantara MD Primary Care Provider: Unknown Physician Consult Narrative Narrative: I was consulted on Yolanda Hatfield who is a 46 year old female who presented to the emergency room with few days history of abdominal pain. The patient had a hysterosonogram on 05/31, started having abdominal/pelvic discomfort 3 days ago that started to get worse over the coming few days , it was associated with nausea and vomiting no vaginal discharge or abnormal uterine bleeding no fevers nurse or chills. cc:: CC: Jeff Alcantara MD CLAIM CLERK - Review of Systems Review of Systems ROS Unobtainable: All systems reviewed & are unremarkable except as noted in HPI and below Cardiovascular: Denies Palpatations, Loss of consciousness or Chest pain Respiratory: Denies Cough, Wheezing or Shortness of breath Musculoskeletal: Denies Low back pain Gastrointestinal: Denies Heartburn, Constipation, Diarrhea, Nausea or Vomiting Genitourinary: Denies Pain with urination, Burning with urination or Urinary frequency Neurological: Denies Migranes Psychological: Denies Depression OB PMFSH Past Medical History Medical History Endometriosis Functional capacity: independent ambulation Surgical History Surgical History H/O hernia repair Social History Social History Advance Directives: Yes Advance Directives on File: Yes Advance Directives Date on File: 06/06/22 service: No Current occupational status: employed Meds Allergies Allergy/AdvReac Type Severity Reaction Status Date / Time No Known Allergies Allergy Verified 06/06/22 00:54 Active Medications: Current Medications Acetaminophen (Acetaminophen 325 Mg Tablet) 650 mg PO Q6H PRN PRN Reason: Pain, Mild (Pain Scale 1-3) Enoxaparin Sodium (Enoxaparin Sodium 40 Mg/0.4 Ml Syringe) 40 mg SUBCUT Q24H [facility] Last Admin: 06/06/22 05:44 Dose: 40 mg Piperacillin Sod/Tazobactam (Sod 4.5 gm/ Sodium Chloride) 100 mls @ 200 mls/hr IV Q6H [facility] Last Infusion: 06/06/22 09:07 Dose: Infused Dextrose (D5w) 1,000 mls @ 125 mls/hr IVCONT .Q8H [facility] Last Admin: 06/06/22 12:37 Dose: 125 mls/hr Melatonin (Melatonin 3 Mg Tablet) 6 mg PO BEDTIME PRN PRN Reason: Insomnia Morphine Sulfate (Morphine Sulfate 4 Mg/Ml Cartridge) 2 mg IVPUSH Q4H PRN; Protocol PRN Reason: Pain, Severe (Pain Scale 7-10) Last Admin: 06/06/22 10:06 Dose: 2 mg Ondansetron HCl (Ondansetron Hcl 4 Mg/2 Ml Vial) 4 mg IVPUSH Q8H PRN PRN Reason: Nausea and Vomiting Last Admin: 06/06/22 06:32 Dose: 4 mg Pharmacy Consult (Consult Rx Perform Med Rec) 1 each MISCELLANE ONCE PRN PRN Reason: Consult order Sodium Chloride (0.9 % Sodium Chloride Flush 3 Ml Syringe) 3 ml IVFLUSH QSHIFT [facility] Last Admin: 06/06/22 09:08 Dose: Not Given Home Medications Medication Instructions Recorded Confirmed Last Taken Type multivitamin 1 tab PO DAILY 06/06/22 06/06/22 Unknown History SENIOR DATA DEVELOPER Physical Exam Vitals Vital signs: Temp Pulse Resp BP Pulse Ox O2 Del Method 98.6 F 106 H 17 135/74 100 06/06/22 04:29 06/06/22 07:36 06/06/22 07:36 06/06/22 07:36 06/06/22 07:36 06/06/22 07:36 BMI result Body Mass Index 35.0 Constitutional General Appearance: Healthy appearing, Well-nourished and Well-developed Psychiatric Mood and Affect: active and alert, normal mood and normal affect Skin Appearance: No rashes and No lesions Lungs Respiratory Effort: No intercostal retractions Auscultation: Clear to auscultation Cardiovascular Auscultation: RRR Abdomen Auscultation/Inspection/Palpation: Normal bowel sounds, Soft, Non-distended and No tenderness Female Genitalia (Pelvic) Vulva: No lesions Cervix: Grossly normal and Cervical motion tenderness Uterus: Normal size and Tender Adnexa/Parametria: Adnexal Tenderness: Bilateral and Adnexal Mass: Bilateral Additional Comments: Copious amount of Yellowish discharge per vagina SENIOR DATA DEVELOPER - Results Labs CBC & Chem 7: 06/06/22 11:29 06/06/22 06:32 Labs: Short CBC 06/06/22 06/06/22 06/06/22 Range/Units 01:04 06:32 11:29 WBC 19.8 H 20.0 H 19.0 H (4.8-10.8) X10*3/uL Hgb 13.8 12.5 12.9 (12.0-16.0) g/dl Hct 39.1 35.8 L 37.1 (37.0-47.0) % Plt Count 353 316 328 (160-400) X10*3/uL BMP 06/06/22 06/06/22 01:04 06:32 Sodium 135 139 Potassium 4.2 4.0 Chloride 103 108 Carbon Dioxide 20 L 22 BUN 8 L 6 L Creatinine 0.80 0.73 Calcium 10.0 8.9 D Liver Function 06/06/22 Range/Units 01:04 Total Bilirubin 1.1 H (0.0-1.0) mg/dL Direct Bilirubin 0.4 (0.0-0.5) mg/dL AST 31 (5-31) U/L ALT 29 (0-31) U/L Alkaline Phosphatase 104 (39-117) U/L Albumin 4.1 (3.5-5.0) g/dL Urine 06/06/22 06/06/22 Range/Units 02:57 02:57 Urine Color Yellow Urine Appearance Clear Urine pH 8.5 (5.0-9.0) Ur Specific [place] 1.015 (1.005-1.025) Urine Protein Trace (Neg-Trace) mg/dL Urine Glucose (UA) Negative (Negative) mg/dL Urine Test NEGATIVE (NEGATIVE) Imaging CT scan - pelvis: Radiologist's impression: ITS Impressions Abdomen/Pelvis CT 06/06/22 02:24 IMPRESSION: The ovaries are abnormally in appearance, enlarged with multiple low density masses and somewhat medially positioned, suggesting the possibility of endometriosis and deep pelvic endometriosis. Recommend further evaluation with a pelvic MRI with and without intravenous contrast. Equivocal wall thickening of a loop of small bowel in the left upper abdomen with several fluid filled prominent loop of small bowel throughout the abdomen which could be related with gastroenteritis in the appropriate clinical context. Mild diverticulosis but no evidence of acute diverticulitis. Increased size of iliac lymph nodes when compared to 06/28/2021, nonspecific. Hepatomegaly. Abdomen/Pelvis CT 06/06/22 10:35 IMPRESSION: Again seen are enlarged medially deviated ovaries with multiple low density masses . Differential diagnosis continues to include the possibility of endometriosis and a pelvic MRI with and without intravenous contrast would be useful for further evaluation. Minimally prominent fluid-filled loops of small bowel left upper quadrant of questionable significance. No definite bowel obstruction. Mild diverticulosis but no evidence of acute diverticulitis. Other incidental findings described above including some nonspecific retroperitoneal and iliac lymph nodes as well as marked hepatomegaly and question of gallstones. Assessment and Plan (1) Endometritis: Status: Acute GC and chlamydia and BV panel were collected. Since the patient gives a history of instrumentation, hystero sonogram, 3 days prior to onset of her symptoms, and on pelvic exam, cervical motion tenderness, uterine and bilateral tenderness are present, in addition to evidence of an infectious process , I recommend to treat for possible pelvic inflammatory disease with the parenteral CDC recommended regimen: Ceftriaxone 1 g IV Q 24 hours , doxycycline 100 mg orally or by IV every 12 hours plus metronidazole 500 mg orally or by IV every 12 hours, then transition from parenteral to oral therapy after 48 hours of sustained clinical improvement as reflected by resolution of nausea and vomiting and/ or severe pain, to the following oral therapy: doxycycline 100 mg p.o. b.i.d. and Flagyl 500 mg p.o. b.i.d. for a 14 day course. (2) Bilateral ovarian cysts: Status: Acute Recommend pelvic ultrasound with Doppler to rule out ovarian torsion although it is unlikely since the patient's abdominal exam is benign and not suggestive of ovarian torsion and she gives a history of slow onset pelvic pain without history of acute onset which is usually present with ovarian torsion.
--- NOTE | 2022-06-06 13:12 | PC.NURSE ---
Pelvic exam done by Dr MCCRACKEN with this RN present
--- NOTE | 2022-06-06 14:11 | PC.NURSE ---
PT will be transported to overflow unit. Report given to RN.
[2022-06-06] MEDS: metroNIDAZOLE 500 MG TABLET PO (18:39)
--- NOTE | 2022-06-06 23:18 | MHC.PIE ---
p; pt c/o h/a, pt also c/o nausea. note, prn zofran given in overflow at 1800 i; dr cornelius notified; give zofran early dose now. p; vs shows pt fever 100.3 i; prn tylenol and ice pack given\ e; will cont to monitor
[2022-06-07] MEDS: Piperacillin Sodium/Tazobactam 4.5 GM in 0.9 % Sodium Chloride 100 ML IV ×4 (01:31→20:23)
[2022-06-07 02:44] VITALS: BP 127/66; PULSE 95; RESP 16; TEMP 36.6; O2SAT 99
[2022-06-07] MEDS: Dextrose 5 % 1,000 ML 125 ML IVCONT ×3 (05:15→17:06)
[2022-06-07] MEDS: cefTRIAXone sodium 1 GM in 0.9 % Sodium Chloride 50 ML IV (05:17)
[2022-06-07] MEDS: Acetaminophen 325 MG TABLET 650 MG PO ×4 (05:20→23:16)
[2022-06-07] MEDS: metroNIDAZOLE 500 MG TABLET PO ×2 (05:21→15:53)
[2022-06-07] MEDS: Enoxaparin Sodium 40 MG/0.4 ML SYRINGE SUBCUT (05:21)
[2022-06-07 06:19] LABS: Hematocrit 35.8 % (37.0-47.0); Hemoglobin 12.4 g/dl (12.0-16.0); Mean Corpuscular HGB Conc 34.6 g/dl (31.0-35.0); Mean Corpuscular Hemoglobin 30.8 pg (27.0-33.0); Mean Corpuscular Volume 89.1 fL (80.0-98.0); Mean Platelet Volume 9.6 fL (9.4-12.3); Platelet Count 343 X10*3/uL (160-400); Red Blood Count 4.02 X10*6/uL (4.20-5.50); Red Cell Distribution Width 11.6 % (11.0-16.0); White Blood Count 20.6 X10*3/uL (4.8-10.8)
[2022-06-07 06:53] VITALS: BP 120/67; PULSE 93; RESP 16; TEMP 36.6; O2SAT 96
--- NOTE | 2022-06-07 08:42 | P.PNOB_ITS ---
[employer] INST[employer]ER - Subjective Subjective Date of Service: 06/07/22 Interval history: Doing well , minimal abdominal pain, on Tylenol, no more narcotics for pain control. Subjective Findings: Ambulating well: Reports PROTECTIVE SERVICES OFFICER Physical Exam Vitals Vital signs: Temp Pulse Resp BP Pulse Ox O2 Del Method 98 F 93 16 120/67 96 06/07/22 06:53 06/07/22 06:53 06/07/22 06:53 06/07/22 06:53 06/07/22 06:53 06/07/22 06:53 BMI result Body Mass Index 35.0 Abdomen Auscultation/Inspection/Palpation: Normal bowel sounds, Soft and No tenderness [employer]ER - Prog Note: Results Labs CBC & Chem 7: 06/07/22 05:10 06/06/22 06:32 Labs: Laboratory Results - last 24 hr 06/06/22 06/06/22 06/06/22 02:57 11:29 11:29 WBC 19.0 H RBC 4.12 L Hgb 12.9 Hct 37.1 MCV 90.0 MCH 31.3 MCHC 34.8 RDW 11.8 Plt Count 328 MPV 9.1 L Absolute Nucleated RBC 0.000 Nucleated RBC % (auto) 0.0 Lactic Acid 0.6 Urine Test NEGATIVE 06/07/22 05:10 WBC 20.6 H RBC 4.02 L Hgb 12.4 Hct 35.8 L MCV 89.1 MCH 30.8 MCHC 34.6 RDW 11.6 Plt Count 343 MPV 9.6 Absolute Nucleated RBC 0.000 Nucleated RBC % (auto) 0.0 Lactic Acid Urine Test Pulse Oximetry Interpretation: Pelvic MRI showed: There are bilateral cystic ovarian lesions. A 3.5 cm unilocular cystic right ovarian lesion and a 4.2 cm multiloculated cystic left adnexal lesion both demonstrate layering T2 hypointense signal suggesting shading sign which could be seen in the setting of endometriomas although the absence of any intrinsic T1 hyperintense signal is atypical. There is an additional 4.2 cm cystic left ovarian lesion with heterogeneous T2 signal, favored to reflect a hemorrhagic cyst however as with the above described cystic lesions there is an absence of intrinsic T1 hyperintense signal which is also atypical. Given atypical features, mucinous cystadenoma would be the other differential consideration. Categorically, these both reflect O-RADS 3 lesions by MR, approximately 5% eugene ce of malignancy. Recommend gynecologic referral and management and short interval follow-up contrast enhanced MR pelvis in 3-6 months. Pelvic ultrasound: 1.? Right ovarian cystic lesion with low-level internal echoes measuring 4.7 cm morphologically resembling an endometrioma. On the left there are 2 adjacent cystic lesions one with low-level internal echoes measuring 3.7 cm morphologically resembling an endometrioma and an adjacent 4.0 cm cystic lesion with low-level internal echoes and questionable lacelike reticulations which differential considerations could include hemorrhagic cyst or endometrioma. Recommend 6-12 week follow-up ultrasound. 2.? Question of a possible 0.9 cm echogenic focus within the anterior aspect of the endometrium, unclear if this could reflect an underlying polyp. This could be further evaluated with dedicated saline sonohysterogram if warranted. 3.? Dilated tubular structure in the right adnexa may reflect a hydrosalpinx. 4.? Per outdoor adventure instructor report ovaries were adherent to the uterus which can be a sign of fibrosis. [employer]ST[employer]ER - A/P (1) Endometritis: Status: Acute Assessment and Plan: Pain level has improved, no more narcotic requirement, T-max with 100.3 at 23:19 on 06/06, but white count still elevated at 20.6 k. Continue same IV antibiotics for at least 48 hours from T-max, if continuous clinical improvement occurs, improvement in leukocytosis and the patient stays afebrile, discharge home on p.o. antibiotics as recommended previously for a total of 14 days, to follow-up in outpatient. (2) Bilateral ovarian cysts: Status: Acute Assessment and Plan: Discussed with the patient the bilateral complex ovarian cysts by ultrasound and pelvic MRI. Discussed with the patient the main limitation of transvaginal ultrasonography and pelvic MRI as a diagnostic tool to distinguish benign from malignant masses relates to its lack of specificity and low positive predictive value for cancer. The differential diagnosis discussed with the patient includes the following but not limited to: benign and malignant gynecological and non- gynecological causes. Discussed with the patient options of treatment as an outpatient management , including laparoscopy ovarian cystectomy/oophorectomy vs. expectant management with repeat US/MRI in 6-12 weeks . If the ovarian complex cysts are persistent larger and / or more complex looking, and/or elevated CA 125 will need surgical management and possibly refer to Gynecologic Oncology. All pros, cons, risks and benefits of each approach were discussed with the patient including but not limited to a delay in the diagnosis and treatment of ovarian cancer affecting the prognosis; The patient decided to go ahead with expectant management. Instructions given the patient to schedule a follow-up ultrasound appointment within 2 weeks of discharge. The patient stated she would like to follow-up with her shipper. All questions were answered & the patient verbalized understanding and agreed with the plan. Time Spent With Patient Time: Total time spent is greater than 50% in coordination of care (as documented) at patient's floor/unit and/or counseling patient: Quality Measures - PROTECTIVE SERVICES OFFICER H&P VTE Prior VTE?: No VTE Risk Level:: Medical - low VTE Device Contraindication: Treatment Not Indicated VTE Drug Contraindication: N/A - Med Ordered
[2022-06-07] MEDS: 0.9 % Sodium Chloride Flush 3 ML SYRINGE IVFLUSH (08:45)
[2022-06-07] MEDS: ondansetron HCL 4 MG/2 ML VIAL IVPUSH ×2 (10:43→23:16)
[2022-06-07 12:00] VITALS: TEMP 36.6
--- NOTE | 2022-06-07 14:33 | P.CDIC_ITS ---
[facility]I Concurrent Query Documentation Clarification: PHYSICIAN'S DOCUMENTATION REQUEST Date of Query: 06/07/22 1438 Patient Name: Yolanda Hatfield Admit Date: 06/06/22 Dear Doctor, A review of the medical record indicates additional documentation may be needed. Please review below and update the documentation accordingly. Clinical Indicators: Risk Factors/Clinical Indicators/Treatments WBC 19.8 T 102.7 HR 135 Per H&P, SIRS and Sepsis are documented Treated with IV Ceftriaxone and Piperacillin Please clarify which, if any, of the following is the most likely etiology of the above symptoms and treatment rendered: * Sepsis * Systemic manifestations of infection, with 2 or more SIRS criteria which include: - Fever > 100.4F or hypothermia < 96.8 F - Leukocytosis - WBC > 12,000 or leukopenia, WBC < 4,000 or > 10% bands - Tachycardia > 90 beats/minute - Tachypnea - RR > 20 breaths/minute or PaCO2 < 32mmHg (Source: Merck Manual 2013) * Indicate the known or suspected organism * Indicate the known or suspected underlying infection, such as UTI, pneumonia, or cellulitis * Indicate if a suspected bacterial infection of unknown source * Indicate if associated with an implanted device such as a F/C, PICC line, orthopedic hardware, etc. * Localized infection only, without systemic illness - indicate the site/source, such as UTI, pneumonia, etc. * SIRS * Other (please specify) * Unable to determine Use of terms such as suspected, likely, concern for, or probable (associated with a specific diagnosis that is being evaluated, monitored, or treated as if it exists) are acceptable and can be coded in the inpatient setting, when documented at the time of discharge. Thank you, Verena Hdez RN Extension: [phone] Please use your independent medical judgment in providing your response. THIS QUERY IS PART OF THE PERMANENT MEDICAL RECORD Provider Response: Sepsis
[2022-06-07 14:51] VITALS: BP 140/81; PULSE 100; RESP 18; TEMP 37.1; O2SAT 99
[2022-06-07 20:00] VITALS: BP 125/75; PULSE 94; RESP 18; TEMP 37.2; O2SAT 96
[2022-06-07] MEDS: Doxycycline Monohydrate 100 MG CAPSULE PO (20:23)
[2022-06-07 23:35] VITALS: BP 130/70; PULSE 92; RESP 18; TEMP 37.9; O2SAT 94
[2022-06-08] MEDS: Dextrose 5 % 1,000 ML 125 ML IVCONT ×2 (00:57→09:04)
[2022-06-08] MEDS: Piperacillin Sodium/Tazobactam 4.5 GM in 0.9 % Sodium Chloride 100 ML IV ×2 (01:00→09:03)
[2022-06-08 03:42] VITALS: BP 113/58; PULSE 88; RESP 18; TEMP 36.9; O2SAT 96
[2022-06-08] MEDS: Acetaminophen 325 MG TABLET 650 MG PO ×2 (05:05→11:14)
[2022-06-08] MEDS: Enoxaparin Sodium 40 MG/0.4 ML SYRINGE SUBCUT (05:05)
[2022-06-08] MEDS: cefTRIAXone sodium 1 GM in 0.9 % Sodium Chloride 50 ML IV (05:06)
[2022-06-08] MEDS: metroNIDAZOLE 500 MG TABLET PO (05:10)
[2022-06-08] MEDS: ondansetron HCL 4 MG/2 ML VIAL IVPUSH (06:22)
[2022-06-08 07:24] VITALS: BP 125/75; PULSE 93; RESP 18; TEMP 36.6; O2SAT 97
[2022-06-08 08:15] LABS: Hematocrit 34.1 % (37.0-47.0); Hemoglobin 11.7 g/dl (12.0-16.0); Mean Corpuscular HGB Conc 34.3 g/dl (31.0-35.0); Mean Corpuscular Hemoglobin 30.8 pg (27.0-33.0); Mean Corpuscular Volume 89.7 fL (80.0-98.0); Mean Platelet Volume 9.6 fL (9.4-12.3); Platelet Count 335 X10*3/uL (160-400); Red Cell Distribution Width 11.8 % (11.0-16.0); White Blood Count 18.2 X10*3/uL (4.8-10.8)
[2022-06-08] MEDS: Doxycycline Monohydrate 100 MG CAPSULE PO (09:04)
--- NOTE | 2022-06-08 10:43 | MHC.CM.PN ---
PT TO DC HOME TODAY WITH NO SERVICES PT TO ARRANGE TRANSPORT
--- NOTE | 2022-06-08 10:47 | P.DS_ITS ---
DS: Providers Provider Date of Service: 06/08/22 Date of admission: 06/06/22 05:04 Primary care physician: Juana Thibodeaux MD Consults: 06/06/22 11:23 Consult to Obstetrics / Gynecology Routine Consulting Provider: Ranjith Beal Reason for consultation: Pelvic pain, abnormal ovaries Has provider been notified: No DS: Diagnosis Discharge Diagnosis (1) Endometritis: Status: Acute (2) Bilateral ovarian cysts: Status: Acute DS: Summary Hospital Course Hospital Course: Chief Complaint: Abdominal Pain This is a 46-year-old female with no pertinent past medical history and not on prescription medications who presents to the emergency department for evaluation of abdominal pain.? Patient states she started having right-sided abdominal pain on Friday.? It was located in the right lower quadrant, intermittent, sharp .? No relation of the pain to food.? Subsequently patient developed fever with nausea and nonbloody emesis.? No diarrhea.? Patient denies burning micturition, hematuria, increased frequency or hesitancy.? No similar complaints in the past.? Does have history of endometriosis and had a hysterogram recently about 2 weeks ago. No symptoms of gastroesophageal reflux disease. ? In the emergency department, patient was found to be febrile, tachycardic and with leukocytosis. Hospital course: Patient presented with abdominal pain as stated above and found to have fever, tachycardia and CT of abdomen showed enlarged medially deviated ovaries with multiple low density masses . Differential diagnosis continues to include the possibility of endometriosis The CT was repeated with with contrast and there was no change. She subsequently had MRI of abdomen with the following description: There are bilateral cystic ovarian lesions. A 3.5 cm unilocular cystic right ovarian lesion and a 4.2 cm multiloculated cystic left adnexal lesion both demonstrate layering T2 hypointense signal suggesting shading sign which could be seen in the setting of endometriomas although the absence of any intrinsic T1 hyperintense signal is atypical. There is an additional 4.2 cm cystic left ovarian lesion with heterogeneous T2 signal, favored to reflect a hemorrhagic cyst however as with the above described cystic lesions there is an absence of intrinsic T1 hyperintense signal which is also atypical. Given atypical features, mucinous cystadenoma would be the other differential consideration. Categorically, these both reflect O-RADS 3 lesions by MR, approximately 5% chance of malignancy. Recommend gynecologic referral and management and short interval follow-up contrast enhanced MR pelvis in 3-6 months. A pelvic US showed 1.? Right ovarian cystic lesion with low-level internal echoes measuring 4.7 cm morphologically resembling an endometrioma. On the left there are 2 adjacent cystic lesions one with low-level internal echoes measuring 3.7 cm morphologically resembling an endometrioma and an adjacent 4.0 cm cystic lesion with low-level internal echoes and questionable lacelike reticulations which differential considerations could include hemorrhagic cyst or endometrioma. Recommend 6-12 week follow-up ultrasound. 2.? Question of a possible 0.9 cm echogenic focus within the anterior aspect of the endometrium, unclear if this could reflect an underlying polyp. This could be further evaluated with dedicated saline sonohysterogram if warranted. 3.? Dilated tubular structure in the right adnexa may reflect a hydrosalpinx. 4.? Per siding stapler report ovaries were adherent to the uterus which can be a sign of fibrosis. ? She was seen by PL[employer]ER M[employer] GRADER Dr. Beal and recommended to treat with antibiotics for presumed PID. She has been on IV Ceftriaxone, PO Doxy and PO Flagyl for the last 2 days. Her pain has signficantly improved only requiring tyelneol now, she has not any further fever, Tachycardia resolved. Dr. Beal discussed final plan as follow Discussed with the patient the bilateral complex ovarian cysts by ultrasound and pelvic MRI.? Discussed with the patient the main limitation of transvaginal ultrasonography and pelvic MRI as a diagnostic tool to distinguish benign from malignant masses relates to its lack of specificity and low positive predictive value for cancer. The differential diagnosis discussed with the patient includes the following but not limited to: benign and malignant gynecological and non- gynecological causes. Discussed with the patient options of treatment as an outpatient management , including laparoscopy ovarian cystectomy/oophorectomy vs. expectant management with repeat US/MRI in? 6-12 weeks . If the ovarian complex cysts are persistent larger and / or more complex looking, and/or elevated CA 125 will need surgical management and possibly refer to Gynecologic Oncology. All pros, cons, risks and benefits of each approach were discussed with the patient? including but not limited to a delay in the diagnosis and treatment of ovarian cancer affecting the prognosis;? The patient decided to go ahead with expectant management.? Instructions given the patient to schedule a follow-up ultrasound appointment within 2 weeks of discharge. The patient stated she would like to follow-up with her chemist water purification.? All questions were answered & the patient verbalized understanding and agreed with the plan. Patient will now be discharged with oral Doxy and Flagyl for total of 14 days, recommend repeat WBC in a week. Time Spent with Patient Time attestation: Total time spent providing and/or coordinating discharge services: Discharge coordination time: Greater than 30 minutes Quality: Safe Use of Opioids Does Pt have an Active Cancer Diagnosis on the Problem List?: No Quality: Stroke Does the patient have a stroke diagnosis?: No Physical Exam Vital Signs: Vital Signs: Last Vital Signs Temp 97.8 F 06/08/22 07:24 Pulse 93 06/08/22 07:24 Resp 18 06/08/22 07:24 BP 125/75 06/08/22 07:24 Pulse Ox 97 06/08/22 07:24 O2 Del Method 06/08/22 07:24 BMI result Body Mass Index 35.0 DS: Data Data Completed and Pending Labs on day of discharge: Laboratory Results - last 24 hr 06/08/22 07:35 WBC 18.2 H RBC 3.80 L Hgb 11.7 L Hct 34.1 L MCV 89.7 MCH 30.8 MCHC 34.3 RDW 11.8 Plt Count 335 MPV 9.6 Absolute Nucleated RBC 0.000 Nucleated RBC % (auto) 0.0 Preliminary micro results at discharge 06/06/22 01:04 Blood Culture - Preliminary Blood - Venous No growth after 48 hours. 06/06/22 01:04 Blood Culture - Preliminary Blood - Venous No growth after 48 hours. Discharge Plan Discharge Anticipated Discharge Date/Time: 06/08/22 10:32 Patient Disposition: Home, Self-Care Discharge Diagnosis: Abdominal pain, PID Referrals: Juana Thibodeaux MD [Primary Care Provider] - 1 Week Discharge Medications: New doxycycline monohydrate 100 mg Capsule 100 mg PO Q12H 12 Days Qty: 24 0RF metronidazole 500 mg Tablet 500 mg PO Q12H 12 Days Qty: 24 0RF Continued multivitamin Tablet 1 tab PO DAILY Discharge Orders: Discharge Order (Routine); Ordered 06/08/22 Ordered By: Jeff Alcantara Diet: Advance to usual diet Activity on Discharge: As tolerated Stand Alone Forms: Patient Portal Discharge page Care Plan Goals: Abdominal pain, PID Health Concerns: Abdominal pain, Ovarian cyst, concern for PID Plan of Treatment: Take Doxycycline and Flagyl as recommended and follow up with your PLANER MILL GRADER Doctor in a week Assessment: as above
== END 2022-06-08 11:39 | disposition home or self-care (01) | DRG 720 ==
LOC: HO.ED 03:16 → HO.EDOVER 05:09 → HO.S3 18:51
PROVIDERS: Admitting Provider Student in an Organized Health Care Education/Training Program; Emergency Provider Emergency Medicine; PCP Family Medicine; Visit Provider Internal Medicine
DX: A41.9 Sepsis, unspecified organism (principal); N71.9 Inflammatory disease of uterus, unspecified; Z20.822 Contact with and (suspected) exposure to COVID-19; Z79.899 Other long term (current) drug therapy; N83.202 Unspecified ovarian cyst, left side; N83.201 Unspecified ovarian cyst, right side
CPT/HCPCS: 0241U; 36415; 72197; 74176; 74177; 76830; 76856; 80048; 80076; 81001; 81003; 81025; 83605; 83690; 85025; 85027; 87040; 87086; 93005; 93975; 99218; 99285; J0696; J1650; J2270; J2405; J2543; Q9967

== ENCOUNTER 2022-06-15 09:45 | Outpatient (REF) | payer BC, SELFPAY ==
[2022-06-15 09:54] LABS: MANUAL DIFF FLAG NO
[2022-06-15 10:22] LABS: Basophils Absolute Auto 0.1 X10*3/uL (0.0-0.2); Basophils Percent Auto 0.3 % (0-2); Eosinophils Absolute Auto 0.2 X10*3/uL (0.0-0.4); Eosinophils Percent Auto 1.4 % (0-4); Hematocrit 36.7 % (37.0-47.0); Hemoglobin 12.1 g/dl (12.0-16.0); Imm Gran Abs Auto 0.21 X10*3/uL (0.00-0.03); Imm Gran Pct Auto 1.4 % (0.0-0.4); Lymphocytes Absolute Auto 2.6 X10*3/uL (1.2-4.9); Lymphocytes Percent Auto 17.6 % (20-40); Mean Corpuscular Volume 90.8 fL (80.0-98.0); Mean Platelet Volume 8.5 fL (9.4-12.3); Monocytes Absolute Auto 0.7 X10*3/uL (0.1-1.2); Monocytes Percent Auto 4.7 % (2-11); Neutrophils Absolute Auto 10.8 x10*3/uL (2.0-8.3); Neutrophils Percent Auto 74.6 % (45-73); Platelet Count 616 X10*3/uL (160-400); Red Blood Count 4.04 X10*6/uL (4.20-5.50); Red Cell Distribution Width 11.9 % (11.0-16.0); White Blood Count 14.5 X10*3/uL (4.8-10.8)
== END 2022-06-15 09:46 | disposition home or self-care (01) ==
LOC: HO.LAB 09:45
PROVIDERS: PCP Family Medicine; Visit Provider Internal Medicine
DX: D72.829 Elevated white blood cell count, unspecified (principal)
CPT/HCPCS: 36415; 85025